=== PATIENT | female | born 1965 | race Caucasian/White ===

== ENCOUNTER 2017-02-24 12:10 | Emergency (ER) | payer BC, OTHER ==
[~2017-02-24] VITALS: Ht 154.9 cm; Wt 80.0 kg
[~2017-02-24 12:10] MED LIST: ADVIL PM1 TABLET PO; ADVIL,NUPRIN,M200 MG PO; NOLVADEX20 MG PO; NORCO 5/3251 TABLET PO; OMEPRAZOLE40 M1 PO; TOPROL XL25 MG PO; ZANTAC300 MG PO
[2017-02-24 12:30] LABS: POINT-OF-CARE METER ID UU13113702
[2017-02-24 12:55] LABS: BASOPHIL COUNT 0.1 K/uL (0-0.1); EOSINOPHIL (%) 2.6 % (0-5); EOSINOPHIL COUNT 0.2 K/uL (0-0.3); HEMATOCRIT 40.4 % (36.0-46.0); IMMATURE GRANULOCYTE (%) 0.5 % (0.0-0.7); INSTRUMENT ABS NEUTROPHIL CT 3.7 K/uL; LYMPHOCYTE COUNT 1.5 K/uL (1.0-2.8); MCH 29.5 PG (29.0-34.0); MCHC 33.2 G/DL (30.0-36.0); MEAN PLAT.VOLUME 10.4 uM^3 (9.5-12.4); MONOCYTE (%) 5.6 % (3-12); MONOCYTE COUNT 0.3 K/uL (0-0.8); NEUTROPHIL (%) 64.5 % (45-76); NEUTROPHIL COUNT 3.7 K/uL (1.8-6.4); PLATELET COUNT 224 K/uL (156-360); RBC DIS.WIDTH-CV 12.3 % (11.8-14.6); RBC DIS.WIDTH-SD 39.8 % (39-53); RED BLOOD COUNT 4.54 M/uL (3.80-5.20); WHITE BLOOD COUNT 5.7 K/uL (4.1-10.2)
[2017-02-24 13:08] LABS: CHLORIDE 104 mEq/L (99-109); POTASSIUM 3.9 mEq/L (3.7-5.4); SODIUM 140 mEq/L (136-147)
[2017-02-24 13:09] LABS: GLUCOSE 110 mg/dL (70-99)
[2017-02-24 13:11] LABS: ANION GAP 11 MEQ/L (2-14)
[2017-02-24 13:13] LABS: GFR ESTIMATE (CALCULATED) 55 mL/min/
[2017-02-24 13:14] LABS: UREA NITROGEN (BUN) 18 mg/dL (9-23)
[2017-02-24 14:30] LABS: POINT-OF-CARE METER ID UU13113702
[2017-02-24 15:08] VITALS: BP 118/85
== END 2017-02-24 15:11 | disposition home or self-care (01) ==
LOC: EME 12:10
PROVIDERS: Emergency Medicine
DX: E16.2 Hypoglycemia, unspecified (principal); I10 Essential (primary) hypertension; Z88.1 Allergy status to other antibiotic agents; Z88.6 Allergy status to analgesic agent
CPT/HCPCS: 80048; 82948; 85025; 93005; 99281; 99283